=== PATIENT | male | born 1955 | race Caucasian/White ===

== ENCOUNTER 2018-08-18 23:11 | Observation (INO) | payer OTHER ==
[~2018-08-18] VITALS: Ht 179.1 cm; Wt 135.3 kg
[~2018-08-18 23:11] MED LIST: ASPI-1005 PO; ATOR40TA69 PO; FLUO20CA30 PO; ISOS30TA6 PO; LOSA50TA64 PO; METO-391 PO; NITR0.4T50 SL
[2018-08-18 23:32] LABS: BASOPHILS % (AUTO) 0.7 % (0.0-5.0); EOSINOPHILS % (AUTO) 6.2 % (0.0-8.0); HEMATOCRIT 39.3 % (42-54); LYMPHOCYTES % (AUTO) 26.3 % (21.0-51.0); MEAN CORPUSCULAR HEMOGLOBIN 34.7 pg (27.0-33.0); MEAN CORPUSCULAR HGB CONC 34.5 g/dL (32.0-36.0); MEAN CORPUSCULAR VOLUME 100.6 fL (79-99); MONOCYTES % (AUTO) 14.7 % (3.0-13.0); NEUTROPHILS % (AUTO) 52.1 % (40.0-77.0); NUCLEATED RED BLOOD CELLS 0.1 % (0.0-0.19); PLATELET COUNT (AUTO) 118 K/uL (130-400); RED BLOOD CELL COUNT(AUTO) 3.91 MIL/uL (4.50-6.20); RED CELL DISTRIBUTION WIDTH 15.6 % (11.0-15.5); WHITE BLOOD COUNT (AUTO) 7.2 K/uL (4.8-10.8)
[2018-08-18] MEDS ORDERED: ASPIRIN 325 MG TABLET ONE (23:44)
[2018-08-18 23:45] LABS: CREATININE 0.9 mg/dL (0.5-1.5); POTASSIUM 3.5 mmol/L (3.5-5.1)
[2018-08-18 23:50] LABS: ALBUMIN 2.3 g/dL (3.5-5.0)
[2018-08-18 23:51] LABS: B-TYPE NATRIURETIC PEPTIDE 28 pg/mL (0-100)
[2018-08-19] VITALS (7 sets, daily range): BP systolic 105–140; BP diastolic 62–75
[2018-08-19] MEDS ORDERED: ONDANSETRON HCL 4 MG/2 ML VIAL IV PRN (01:15)
[2018-08-19] MEDS ORDERED: POTASSIUM CHLORIDE 20 MEQ ERTAB PO PRN (01:15)
[2018-08-19] MEDS ORDERED: POTASSIUM CHLORIDE 10% ELIXIR 20 MEQ/15 ML UDCUP PO PRN (01:15)
[2018-08-19] MEDS ORDERED: NITROGLYCERIN 0.4 MG SL TAB SL PRN (01:15)
[2018-08-19] MEDS ORDERED: MAGNESIUM 2GM PREMIX 50ML 50 ML IV PRN (01:15)
[2018-08-19] MEDS ORDERED: LIDOCAINE HCL-MPF 1% 2ML VIAL IVP PRN (01:15)
[2018-08-19] MEDS ORDERED: ACETAMINOPHEN 325 MG TAB PO PRN ×2 (01:15)
[2018-08-19] MEDS ORDERED: POTASSIUM CHLORIDE 20MEQ/100ML 100 ML IV PRN (01:15)
[2018-08-19] MEDS ORDERED: FUROSEMIDE 10 MG/ML 4ML VIAL ONE (01:32)
[2018-08-19] MEDS ORDERED: NITROGLYCERIN 1GM/1 INCH PACKET TD ONE (01:32)
[2018-08-19] MEDS ORDERED: DIPHENHYDRAMINE HCL 25 MG CAPSULE PO PRN (01:45)
[2018-08-19] MEDS ORDERED: FUROSEMIDE 10 MG/ML 4ML VIAL IV SCH (01:45)
[2018-08-19 02:03] LABS: APPEARANCE,URINE CLEAR (CLEAR); BILIRUBIN,URINE MODERATE (NEGATIVE); GLUCOSE, URINE (UA) NEGATIVE (NEGATIVE); KETONES,URINE 15 mg/dL (NEGATIVE); LEUKOCYTE ESTERASE ,URINE TRACE (NEGATIVE); NITRATE,URINE POSITIVE (NEGATIVE); OCCULT BLOOD,URINE NEGATIVE (NEGATIVE); PROTEIN,URINE TRACE mg/dL (NEGATIVE)
[2018-08-19 02:05] LABS: COLOR,URINE AMBER (YELLOW)
[2018-08-19 02:10] LABS: RBC,URINE None Seen /HPF (0-1)
[2018-08-19 02:11] LABS: AMORPHOUS SEDIMENT,UR Moderate /LPF (None Seen); BACTERIA,URINE Few /HPF (None Seen); MUCUS,URINE Moderate LPF (None Seen); SQUAMOUS EPITHELIAL CELL,UR Moderate /HPF (0-2)
[2018-08-19 02:16] LABS: AMPHET/METH SCREEN,URINE NEGATIVE (NEGATIVE); BARBITURATE SCREEN, URINE NEGATIVE (NEGATIVE); BENZODIAZEPINES SCREEN,URINE NEGATIVE (NEGATIVE); CANNABINOID SCREEN,URINE NEGATIVE (NEGATIVE); COCAINE SCREEN,URINE POSITIVE (NEGATIVE); OPIATE SCREEN,URINE NEGATIVE (NEGATIVE); PHENCYCLIDINE SCREEN,URINE NEGATIVE (NEGATIVE)
[2018-08-19] MEDS ORDERED: LORAZEPAM 2 MG/ML 1 ML VIAL IVP PRN ×2 (03:15)
[2018-08-19] MEDS ORDERED: PROMETHAZINE HCL 25 MG TABLET PO PRN (03:15)
[2018-08-19] MEDS ORDERED: CHLORDIAZEPOXIDE HCL 25 MG CAP PO PRN ×2 (03:15)
[2018-08-19] MEDS ORDERED: PHARMACY COMMUNICATION MISC PRN (03:15)
[2018-08-19] MEDS: FUROSEMIDE 10 MG/ML 4ML VIAL IV SCH ×2 (05:19→18:04)
[2018-08-19] MEDS: IPRATROPIUM/ALBUTEROL SULFATE 3 ML SOLUTION IH PRN ×2 (06:08→18:19)
[2018-08-19 08:06] LABS: BASOPHILS % (AUTO) 0.9 % (0.0-5.0); EOSINOPHILS % (AUTO) 7.4 % (0.0-8.0); HEMATOCRIT 38.6 % (42-54); LYMPHOCYTES % (AUTO) 31.7 % (21.0-51.0); MEAN CORPUSCULAR HEMOGLOBIN 34.5 pg (27.0-33.0); MEAN CORPUSCULAR HGB CONC 33.9 g/dL (32.0-36.0); MEAN CORPUSCULAR VOLUME 101.6 fL (79-99); MONOCYTES % (AUTO) 15.1 % (3.0-13.0); NEUTROPHILS % (AUTO) 44.9 % (40.0-77.0); PLATELET COUNT (AUTO) 114 K/uL (130-400); RED CELL DISTRIBUTION WIDTH 15.8 % (11.0-15.5); WHITE BLOOD COUNT (AUTO) 6.2 K/uL (4.8-10.8)
[2018-08-19 08:23] LABS: INR 1.34 (0.85-1.15); PARTIAL THROMBOPLASTIN TIME 35.2 SEC (26.3-35.5)
[2018-08-19 08:35] LABS: CREATINE KINASE, TOTAL 200 U/L (21-232); MYOGLOBIN 99 ng/mL (10-92); PHOSPHORUS 3.4 mg/dL (2.5-4.9); TROPONIN I < 0.04 ng/mL (0.00-0.06)
[2018-08-19] MEDS ORDERED: ASPIRIN 325 MG TABLET PO SCH (09:00)
[2018-08-19] MEDS ORDERED: METOPROLOL TARTRATE 25 MG TAB PO SCH (09:00)
[2018-08-19] MEDS: FOLIC ACID 1 MG TABLET PO SCH (09:01)
[2018-08-19] MEDS: MULTIVITAMIN TABLET PO SCH (09:01)
[2018-08-19] MEDS: ENOXAPARIN SODIUM 40 MG/0.4 ML SYRINGE SQ SCH (09:02)
[2018-08-19] MEDS: THIAMINE HCL 100 MG/ML 2ML VIAL IM SCH (09:02)
[2018-08-19] MEDS: FAMOTIDINE 20MG TAB 20 MG TAB PO SCH ×2 (09:05→21:19)
[2018-08-19 09:40] LABS: ALBUMIN 2.1 g/dL (3.5-5.0); BILIRUBIN,TOTAL 4.8 mg/dL (0.2-1.0); CREATININE 0.8 mg/dL (0.5-1.5); MAGNESIUM 2.4 mg/dL (1.80-2.40); POTASSIUM 3.7 mmol/L (3.5-5.1); TOTAL PROTEIN, SERUM 6.6 g/dL (6.0-8.3)
[2018-08-19] MEDS ORDERED: ISOS30TA6 PO (10:09)
[2018-08-19] MEDS ORDERED: FURO20TA4 PO (10:09)
[2018-08-19] MEDS ORDERED: ASPI-1181 PO (10:09)
[2018-08-19] MEDS ORDERED: ATOR20TA65 PO (10:09)
[2018-08-19] MEDS ORDERED: METO-391 PO (10:09)
[2018-08-19] MEDS ORDERED: FLUO-126 PO (10:09)
--- NOTE | 2018-08-19 10:50 | NUR ---
DR. RESENDIZ HERE , CONSULTATION . ORDER .REVIEW PT . HX. AND SPOKE OF PT OF PLAN OF CARE. AT PRESENT DENIES ANY CHEST PAIN. TELE MONITOR ON .AND CALL LIGHT IN REACH..
[2018-08-19 16:13] LABS: CREATINE KINASE, TOTAL 172 U/L (21-232); MYOGLOBIN 79 ng/mL (10-92); TROPONIN I < 0.04 ng/mL (0.00-0.06)
--- NOTE | 2018-08-19 16:35 | NUR ---
INITIAL: Met with pt and spouse this afternoon to discuss dcp. Pt states that he lives w spouse. Prior to admission was requiring FURNITURE DUSTER for ambulation and assist w ADLs. Pt does not own any DME or receive services. Per pt he feels safe and comfortable to [place] at [place]. CM to continue to follow and wait for Md recommendations. Addendum: 08/19/18 at 1637 by MANUEL STODDARD Amended: Links added.
[2018-08-19] MEDS: ATORVASTATIN CALCIUM 20 MG TABLET PO SCH (21:19)
[2018-08-20 04:07] VITALS: BP 126/72
[2018-08-20] MEDS: FUROSEMIDE 10 MG/ML 4ML VIAL IV SCH ×2 (05:46→18:49)
[2018-08-20 06:08] LABS: BASOPHILS % (AUTO) 0.4 % (0.0-5.0); EOSINOPHILS % (AUTO) 5.5 % (0.0-8.0); HEMATOCRIT 37.7 % (42-54); LYMPHOCYTES % (AUTO) 24.2 % (21.0-51.0); MEAN CORPUSCULAR HEMOGLOBIN 35.9 pg (27.0-33.0); MEAN CORPUSCULAR HGB CONC 35.4 g/dL (32.0-36.0); MEAN CORPUSCULAR VOLUME 101.3 fL (79-99); MONOCYTES % (AUTO) 21.1 % (3.0-13.0); NEUTROPHILS % (AUTO) 48.8 % (40.0-77.0); PLATELET COUNT (AUTO) 105 K/uL (130-400); RED BLOOD CELL COUNT(AUTO) 3.72 MIL/uL (4.50-6.20); RED CELL DISTRIBUTION WIDTH 15.9 % (11.0-15.5); WHITE BLOOD COUNT (AUTO) 4.9 K/uL (4.8-10.8)
[2018-08-20 06:19] LABS: BILIRUBIN,TOTAL 4.8 mg/dL (0.2-1.0); CREATININE 0.8 mg/dL (0.5-1.5); MAGNESIUM 1.8 mg/dL (1.80-2.40); PHOSPHORUS 3.5 mg/dL (2.5-4.9); POTASSIUM 3.8 mmol/L (3.5-5.1); TOTAL PROTEIN, SERUM 6.3 g/dL (6.0-8.3)
[2018-08-20] MEDS: IPRATROPIUM/ALBUTEROL SULFATE 3 ML SOLUTION IH PRN ×2 (06:49→18:41)
[2018-08-20 07:30] VITALS: BP 129/89
--- NOTE | 2018-08-20 08:00 | NUR ---
PT AAO X 3 REVIEW PLAN OF CARE. PT IS NPO FOR PENDING CRISTINA SCAN FOR TODAY, DENIES ANY CHEST PAIN, , CALL LIGHT IN REACH..
[2018-08-20] MEDS ORDERED: NON-FORMULARY MEDICATION 1 EACH (Metoprolol Succinate 50 MG) PO SCH (09:00)
[2018-08-20 11:00] VITALS: BP 136/76
[2018-08-20] MEDS ORDERED: REGADENOSON 0.4 MG/5 ML PF SYG IVP SCH (11:00)
[2018-08-20] MEDS: FLUOXETINE HCL 20 MG CAPSULE PO SCH (14:48)
[2018-08-20] MEDS: FOLIC ACID 1 MG TABLET PO SCH (14:49)
[2018-08-20] MEDS: THIAMINE HCL 100 MG/ML 2ML VIAL IM SCH (14:49)
[2018-08-20] MEDS: METOPROLOL TARTRATE 25 MG TAB PO SCH ×2 (14:49→20:48)
[2018-08-20] MEDS: MULTIVITAMIN TABLET PO SCH (14:49)
[2018-08-20] MEDS: ISOSORBIDE MONO 30MG TAB SR PO SCH (14:50)
[2018-08-20] MEDS: ASPIRIN 81 MG EC TAB PO SCH (14:55)
[2018-08-20] MEDS: ENOXAPARIN SODIUM 40 MG/0.4 ML SYRINGE SQ SCH (14:55)
[2018-08-20] MEDS: FAMOTIDINE 20MG TAB 20 MG TAB PO SCH ×2 (14:55→20:48)
[2018-08-20 16:00] VITALS: BP 139/71
--- NOTE | 2018-08-20 17:00 | NUR ---
CRISTINA SCAN . COMPLETED . WITH RESULTS NOTED.
[2018-08-20 20:00] VITALS: BP 126/73
[2018-08-20] MEDS: ATORVASTATIN CALCIUM 20 MG TABLET PO SCH (20:48)
[2018-08-21] VITALS: BP 111/55
[2018-08-21 04:00] VITALS: BP 95/61
[2018-08-21 05:14] LABS: CREATININE 0.8 mg/dL (0.5-1.5); POTASSIUM 3.6 mmol/L (3.5-5.1)
[2018-08-21] MEDS: FUROSEMIDE 10 MG/ML 4ML VIAL IV SCH (05:44)
[2018-08-21] MEDS: IPRATROPIUM/ALBUTEROL SULFATE 3 ML SOLUTION IH PRN (06:18)
[2018-08-21 07:50] VITALS: BP 104/58
--- NOTE | 2018-08-21 08:00 | NUR ---
PT AAO X 3 RE VIEW PLAN OF CARE FOR TODAY PENDING DR RESENDIZ . RECOMMANDATIONS . FOR POSSIBLE . DISCHARGE CARE . CALL LIGHT IN REACH...
[2018-08-21] MEDS ORDERED: FOLI1TAB15 PO (08:46)
[2018-08-21] MEDS ORDERED: MVIT PO (08:46)
[2018-08-21] MEDS ORDERED: FURO40TA7 PO (08:46)
[2018-08-21] MEDS ORDERED: METO25 PO (08:46)
[2018-08-21] MEDS ORDERED: CEFTRIAXONE SODIUM 2 GM VIAL IVP SCH (09:00)
[2018-08-21] MEDS ORDERED: CEFD300C3 PO (09:01)
[2018-08-21] MEDS: ENOXAPARIN SODIUM 40 MG/0.4 ML SYRINGE SQ SCH (09:16)
[2018-08-21] MEDS: ASPIRIN 81 MG EC TAB PO SCH (09:16)
[2018-08-21] MEDS: FAMOTIDINE 20MG TAB 20 MG TAB PO SCH (09:16)
[2018-08-21] MEDS: MULTIVITAMIN TABLET PO SCH (09:17)
[2018-08-21] MEDS: THIAMINE HCL 100 MG/ML 2ML VIAL IM SCH (09:17)
[2018-08-21] MEDS: ISOSORBIDE MONO 30MG TAB SR PO SCH (09:17)
[2018-08-21] MEDS: FLUOXETINE HCL 20 MG CAPSULE PO SCH (09:17)
[2018-08-21] MEDS: FOLIC ACID 1 MG TABLET PO SCH (09:17)
[2018-08-21] MEDS: METOPROLOL TARTRATE 25 MG TAB PO SCH (09:18)
[2018-08-21 11:37] VITALS: BP 116/65
--- NOTE | 2018-08-21 15:21 | NUR ---
DIS CHARGE SUMMARY REVIEW WITH PT. REGARDING DISCHARGE MEDICATIONS ORDERS AND CHANGES . PT WAS ABLE TO FOCUS WITH INSTRUCTIONS . PT ALSO TO FOLLOW WITH DR. RESENDIZ AND HIS PRIVATE DRJosé FOR CONT FOLLOW CARE..// SL TO HIS RAC DC , WITH NO REDNESS TO SITE. OR HEMATOMA. . FAMILY , AT THE BEDSIDE AND REVIEW . AGAIN MEDICATIONS CHANGES AND NEW PRESCRIPTIONS . OFFER NO C/O OF CHEST PAIN. OR SOB. . .
== END 2018-08-21 15:21 | disposition home or self-care (01) ==
LOC: EDH 23:11 → INTOOBSV 08-19 01:20 → EDHIP 08-19 01:20 → 3BH 08-19 02:33
PROVIDERS: ADMIT Hospitalist; ATTEND Hospitalist
DX: R07.89 Other chest pain (principal); E83.42 Hypomagnesemia; I11.0 Hypertensive heart disease with heart failure; I50.9 Heart failure, unspecified; I25.10 Atherosclerotic heart disease of native coronary artery without angina pectoris; I81 Portal vein thrombosis; K74.60 Unspecified cirrhosis of liver; E87.6 Hypokalemia; F10.229 Alcohol dependence with intoxication, unspecified; F17.210 Nicotine dependence, cigarettes, uncomplicated; N39.0 Urinary tract infection, site not specified; R18.8 Other ascites; R79.1 Abnormal coagulation profile; Z82.49 Family history of ischemic heart disease and other diseases of the circulatory system; Z83.3 Family history of diabetes mellitus; Z90.49 Acquired absence of other specified parts of digestive tract; Z95.5 Presence of coronary angioplasty implant and graft; Z79.899 Other long term (current) drug therapy
CPT/HCPCS: 36415 ×4; 71045; 76700; 78452; 80048; 80053 ×3; 80061; 80305; 81001; 82550 ×3; 83735 ×3; 83874 ×2; 83880; 84100 ×3; 84484 ×3; 85025 ×3; 85610; 85730; 87088; 93005 ×3; 93017; 93306; 93970; 94640 ×5; 94664; 96372 ×3; 96374; 96375; 96376 ×3; 99284; A9500 ×2; G0378 ×56; G0480; J0696; J1650 ×3; J1940 ×6; J2785; J3411 ×3; Q0163

== ENCOUNTER 2018-11-08 06:14 | Day surgery (SDC) | payer OTHER ==
[~2018-11-08] VITALS: Ht 177.8 cm; Wt 129.7 kg
[~2018-11-08 06:14] MED LIST changes: -ASPI-1005 PO; +ASPI-1181 PO; +ATOR20TA65 PO; -ATOR40TA69 PO; +FLUO-126 PO; -FLUO20CA30 PO; +FOLI1TAB15 PO; +FURO40TA7 PO; -LOSA50TA64 PO; -METO-391 PO; +METO25 PO; -NITR0.4T50 SL; +SODIUM CHLORIDE 0.9% 1000ML 1,000 ML IV ONE; +SPIR50TA5 PO
[2018-11-08 07:16] VITALS: BP 108/64
[2018-11-08] MEDS ORDERED: PROPOFOL 10 MG/ML 20ML VIAL IV ONE (08:49)
[2018-11-08 09:00] VITALS: BP 100/56
[2018-11-08 09:15] VITALS: BP 116/68
== END 2018-11-08 09:37 | disposition home or self-care (01) ==
LOC: DAH 06:14 → ENDO 06:14
PROVIDERS: ATTEND Internal Medicine Gastroenterology
DX: K29.50 Unspecified chronic gastritis without bleeding (principal); I85.00 Esophageal varices without bleeding; K31.89 Other diseases of stomach and duodenum; I10 Essential (primary) hypertension; F41.9 Anxiety disorder, unspecified; K74.60 Unspecified cirrhosis of liver; F32.9 Major depressive disorder, single episode, unspecified; E78.2 Mixed hyperlipidemia; I25.10 Atherosclerotic heart disease of native coronary artery without angina pectoris; F17.210 Nicotine dependence, cigarettes, uncomplicated; Z86.010 Personal history of colon polyps; Z90.49 Acquired absence of other specified parts of digestive tract; Z98.890 Other specified postprocedural states; Z72.89 Other problems related to lifestyle; Z95.818 Presence of other cardiac implants and grafts; Z79.899 Other long term (current) drug therapy; Z79.82 Long term (current) use of aspirin; Z82.3 Family history of stroke; Z83.3 Family history of diabetes mellitus; Z82.49 Family history of ischemic heart disease and other diseases of the circulatory system
CPT/HCPCS: 43239; 88305; J2704; J7030

== ENCOUNTER → 2019-03-13 | Outpatient (CLI) | payer OTHER ==
[~2019-03-13] MED LIST changes: -FLUO-126 PO; +FLUO20CA34 PO; -SODIUM CHLORIDE 0.9% 1000ML 1,000 ML IV ONE
[2019-03-13 08:15] LABS: BASOPHILS % (AUTO) 0.6 % (0.0-5.0); EOSINOPHILS % (AUTO) 9.2 % (0.0-8.0); HEMATOCRIT 35.6 % (42-54); LYMPHOCYTES % (AUTO) 26.8 % (21.0-51.0); MEAN CORPUSCULAR HEMOGLOBIN 33.6 pg (27.0-33.0); MEAN CORPUSCULAR HGB CONC 34.6 g/dL (32.0-36.0); MEAN CORPUSCULAR VOLUME 97.3 fL (79-99); MONOCYTES % (AUTO) 17.3 % (3.0-13.0); NEUTROPHILS % (AUTO) 45.6 % (40.0-77.0); PLATELET COUNT (AUTO) 117 K/uL (130-400); RED BLOOD CELL COUNT(AUTO) 3.66 MIL/uL (4.50-6.20); RED CELL DISTRIBUTION WIDTH 16.8 % (11.0-15.5); WHITE BLOOD COUNT (AUTO) 6.5 K/uL (4.8-10.8)
[2019-03-13 08:30] LABS: INR 1.38 (0.85-1.15); PROTHROMBIN TIME 14.3 SEC (9.6-11.6)
[2019-03-13 08:35] LABS: ALBUMIN 1.9 g/dL (3.5-5.0); BILIRUBIN,TOTAL 3.6 mg/dL (0.2-1.0); CREATININE 1.2 mg/dL (0.5-1.5); POTASSIUM 4.9 mmol/L (3.5-5.1); TOTAL PROTEIN, SERUM 7.1 g/dL (6.0-8.3)
--- NOTE | 2019-03-13 09:50 | NUR ---
U/S GD PARACENTESIS PROCEDURE PERFORMED BY . PUNCTURE SITE RIGHT LOWER QUADRANT OF ABDOMEN AND PATIENT TOLERATED PROCEDURE WELL. TOTAL REMOVED 9.6 LITERS OF YELLOW FLUID. END OF PROCEDURE AT 0925. CATHETER REMOVED AND DRESSING APPLIED. NO BLEEDING NOTED. ALBUMIN 25% 50 GRAMS GIVEN DURING PROCEDURE [place] [facility] [place]. DISCHARGE INSTRUCTIONS GIVEN TO PATIENT. PATIENT VERBALIZED UNDERSTANDING. PT DISCHARGED AMBULATORY, STABLE, AAO X3 WITH NO C/O PAIN. SPECIMEN SENT TO LAB.
[2019-03-13 11:56] LABS: ALBUMIN,BODY FLUID < 0.6 g/dL
[2019-03-13 12:28] LABS: APPEARANCE BODY FLUID CLEAR (CLEAR); BODY FLUID WBC 94 /cu. mm.; COLOR,BODY FLUID YELLOW (LT YELLOW); SPECIMENTYPE,BODY FLUID ASCITES
[2019-03-13] MEDS: ALBUMIN (HUMAN) 25% 200 ML IV PRN ×2 (12:28→12:29)
[2019-03-13 12:29] LABS: BODY FLUID RBC 284 /cu. mm.
[2019-03-13 12:30] LABS: TOTAL VOLUME,BODY FLUID 9600 mL
[2019-03-13 12:46] LABS: BF EOSINOPHIL 1 %; BF LYMPHOCYTE 45 %; BF MESOTHELIAL 27 %; BF MONOCYTE 10 %
== END ==
LOC: RAH 07:24
PROVIDERS: ATTEND Internal Medicine Gastroenterology
DX: K74.60 Unspecified cirrhosis of liver (principal); K29.30 Chronic superficial gastritis without bleeding; I85.00 Esophageal varices without bleeding; R19.7 Diarrhea, unspecified; E78.2 Mixed hyperlipidemia; I10 Essential (primary) hypertension; F41.9 Anxiety disorder, unspecified; F32.9 Major depressive disorder, single episode, unspecified; Z79.82 Long term (current) use of aspirin; Z79.899 Other long term (current) drug therapy; Z86.010 Personal history of colon polyps; Z90.49 Acquired absence of other specified parts of digestive tract; Z98.890 Other specified postprocedural states; Z95.5 Presence of coronary angioplasty implant and graft
CPT/HCPCS: 36415; 49083; 80053; 82042; 84157; 85025; 85610; 87071; 87205; 89051; 96365; A4215

== ENCOUNTER 2019-05-01 16:45 | Inpatient (IN) | payer OTHER ==
[~2019-05-01] VITALS: Ht 180.3 cm; Wt 123.4 kg
[~2019-05-01 16:45] MED LIST changes: -FLUO20CA34 PO; +FLUO20CA35 PO
[2019-05-01] MEDS ORDERED: SODIUM CHLORIDE 0.9% 1000ML 1,000 ML IV ONE (17:13)
[2019-05-01 17:23] LABS: BASOPHILS % (AUTO) 0.1 % (0.0-5.0); EOSINOPHILS % (AUTO) 1.9 % (0.0-8.0); LYMPHOCYTES % (AUTO) 10.8 % (21.0-51.0); MEAN CORPUSCULAR HGB CONC 35.7 g/dL (32.0-36.0); MEAN CORPUSCULAR VOLUME 92.6 fL (79-99); NEUTROPHILS % (AUTO) 75.9 % (40.0-77.0); PLATELET COUNT (AUTO) 126 K/uL (130-400); RED BLOOD CELL COUNT(AUTO) 3.24 MIL/uL (4.50-6.20); RED CELL DISTRIBUTION WIDTH 17.6 % (11.0-15.5); WHITE BLOOD COUNT (AUTO) 11.8 K/uL (4.8-10.8)
[2019-05-01 17:36] LABS: INR 1.43 (0.85-1.15); PARTIAL THROMBOPLASTIN TIME 38.1 SEC (26.3-35.5); PROTHROMBIN TIME 14.8 SEC (9.6-11.6)
[2019-05-01 17:38] LABS: CARBON DIOXIDE 18 mmol/L (21-32); CHLORIDE 100 mmol/L (101-111); CREATININE 4.6 mg/dL (0.5-1.5); GLOMERULAR FILTR. RATE CALC 14 mL/min (>60); GLUCOSE,RANDOM 135 mg/dL (70-105); POTASSIUM 5.6 mmol/L (3.5-5.1); SODIUM SERUM 129 mmol/L (136-145); UREA NITROGEN, BLOOD 53 mg/dL (7-18)
[2019-05-01 17:50] LABS: ALANINE AMINOTRANSFERASE 59 U/L (12-78); ALBUMIN 1.6 g/dL (3.5-5.0); ASPARTATE AMINOTRANSFERASE 105 U/L (10-37); BILIRUBIN,TOTAL 2.5 mg/dL (0.2-1.0); CREATINE KINASE, TOTAL 263 U/L (21-232); MYOGLOBIN 786 ng/mL (10-92); TOTAL PROTEIN, SERUM 6.4 g/dL (6.0-8.3); TROPONIN I < 0.04 ng/mL (0.00-0.06)
[2019-05-01 18:06] LABS: APPEARANCE,URINE Cloudy (CLEAR); BILIRUBIN,URINE Moderate (NEGATIVE); COLOR,URINE Dark Yellow (YELLOW); GLUCOSE, URINE (UA) Negative (NEGATIVE); KETONES,URINE Trace mg/dL (NEGATIVE); LEUKOCYTE ESTERASE ,URINE Small (NEGATIVE); NITRATE,URINE Positive (NEGATIVE); OCCULT BLOOD,URINE Negative (NEGATIVE); PROTEIN,URINE POS 1+ mg/dL (NEGATIVE)
[2019-05-01 18:27] LABS: AMORPHOUS SEDIMENT,UR Few /LPF (None Seen); BACTERIA,URINE Moderate /HPF (None Seen); MUCUS,URINE Many LPF (None Seen); RBC,URINE 0-1 /HPF (0-1); SQUAMOUS EPITHELIAL CELL,UR Moderate /HPF (0-2)
[2019-05-01] MEDS ORDERED: ZOSYN 3.375GM+NS 50ML 50 ML IV ONE (18:37)
[2019-05-01 18:55] LABS: AMPHET/METH SCREEN,URINE NEGATIVE (NEGATIVE); BARBITURATE SCREEN, URINE NEGATIVE (NEGATIVE); BENZODIAZEPINES SCREEN,URINE NEGATIVE (NEGATIVE); CANNABINOID SCREEN,URINE NEGATIVE (NEGATIVE); COCAINE SCREEN,URINE POSITIVE (NEGATIVE); OPIATE SCREEN,URINE NEGATIVE (NEGATIVE); PHENCYCLIDINE SCREEN,URINE NEGATIVE (NEGATIVE)
[2019-05-01 18:58] LABS: ABG BASE EXCESS -9.9 mmol/L (-2.0-3.0); ABG OXYGEN SATURATION 95.3 % (95.0-99.0); ABG PCO2 26 mmHg (35-48)
[2019-05-01] MEDS ORDERED: SODIUM BICARB 50MEQ 50ML VIAL ONE (19:28)
[2019-05-01] MEDS ORDERED: CALCIUM GLUCONATE 1 GM/10 ML VIAL IV ONE (19:28)
[2019-05-01] MEDS ORDERED: INSULIN HUMULIN R 100 UNIT/ML 3ML ONE (19:29)
[2019-05-01] MEDS ORDERED: DEXTROSE 50%-WATER 50 ML DISP.SYRIN IV ONE (19:29)
[2019-05-01] MEDS ORDERED: SODIUM CHLORIDE 0.9% 500ML 500 ML IV ONE ×2 (19:30→21:57)
[2019-05-01] MEDS ORDERED: NOREPINEPHRINE BITARTRATE 1 MG/1 ML ML IV ONE (20:57)
[2019-05-01] MEDS ORDERED: VANCOMYCIN 1GM+NS 250ML 250 ML IV ONE (21:57)
[2019-05-01] MEDS ORDERED: ALBUMIN (HUMAN) 25% 100 ML IV ONE (21:58)
[2019-05-01] MEDS ORDERED: ZOSYN 3.375GM+NS 50ML 50 ML IV SCH (22:15)
[2019-05-01] MEDS ORDERED: CEFTRIAXONE SODIUM 1 GM IVP SCH (22:15)
[2019-05-01] MEDS ORDERED: ALBUMIN (HUMAN) 25% 50 ML IV SCH (22:15)
[2019-05-01 22:33] LABS: BASOPHILS % (AUTO) 0.3 % (0.0-5.0); HEMATOCRIT 28.3 % (42-54); LYMPHOCYTES % (AUTO) 13.8 % (21.0-51.0); MEAN CORPUSCULAR VOLUME 91.6 fL (79-99); MONOCYTES % (AUTO) 15.2 % (3.0-13.0); NEUTROPHILS % (AUTO) 68.5 % (40.0-77.0); PLATELET COUNT (AUTO) 114 K/uL (130-400); RED BLOOD CELL COUNT(AUTO) 3.09 MIL/uL (4.50-6.20); RED CELL DISTRIBUTION WIDTH 17.7 % (11.0-15.5); WHITE BLOOD COUNT (AUTO) 11.2 K/uL (4.8-10.8)
[2019-05-01 22:43] LABS: CREATININE 4.5 mg/dL (0.5-1.5)
[2019-05-01 22:49] LABS: ALBUMIN 1.5 g/dL (3.5-5.0); BILIRUBIN,DIRECT 1.9 mg/dL (0.0-0.3); BILIRUBIN,TOTAL 2.3 mg/dL (0.2-1.0); TOTAL PROTEIN, SERUM 5.8 g/dL (6.0-8.3)
[2019-05-01 23:08] LABS: B-TYPE NATRIURETIC PEPTIDE 23 pg/mL (0-100)
[2019-05-01] MEDS ORDERED: PHARMACY COMMUNICATION MISC SCH (23:30)
[2019-05-02] VITALS (8 sets, daily range): BP systolic 81–102; BP diastolic 44–58
[2019-05-02] MEDS ORDERED: ZOSYN 3.375GM+NS 50ML 50 ML IV ONE (05:46)
[2019-05-02] MEDS ORDERED: CEFTRIAXONE SODIUM 1 GM ONE (05:47)
[2019-05-02] MEDS ORDERED: NOREPINEPHRINE BITARTRATE 1 MG/1 ML ML IV ONE ×3 (07:30→15:00)
[2019-05-02] MEDS ORDERED: SODIUM CHLORIDE 0.9% 100 ML IV ONE ×4 (07:31→15:00)
[2019-05-02] MEDS ORDERED: IBUPROFEN 200 MG TAB ONE (08:04)
[2019-05-02] MEDS ORDERED: IBUPROFEN 400 MG TABLET ONE (08:04)
[2019-05-02] MEDS: FAMOTIDINE/PF 20 MG/2 ML VIAL IV SCH ×2 (09:00→20:42)
[2019-05-02] MEDS: LACTATED RINGERS 1000ML IV SCH (09:15)
[2019-05-02] MEDS: MEROPENEM 1 GM VIAL IVP SCH ×2 (09:15→18:25)
[2019-05-02] MEDS ORDERED: VASOPRESSIN 20 UNITS in SODIUM CHLORIDE 0.9% 100 ML IV SCH (09:15)
[2019-05-02] MEDS ORDERED: FENTANYL CITRATE PF 50 MCG/1 ML 2ML VIAL ONE (09:25)
[2019-05-02] MEDS ORDERED: MIDAZOLAM HCL 5 MG/ML 2ML VIAL IV ONE (09:26)
[2019-05-02] MEDS ORDERED: MIDODRINE HCL 5 MG TABLET PO SCH (10:00)
[2019-05-02] MEDS ORDERED: MEROPENEM 1 GM VIAL ONE (11:23)
[2019-05-02] MEDS ORDERED: ALBUMIN (HUMAN) 25% 100 ML IV ONE (11:24)
[2019-05-02] MEDS ORDERED: MIDODRINE HCL 5 MG TABLET ONE (11:24)
[2019-05-02] MEDS ORDERED: METHYLPREDNISOLONE SOD SUCC 125MG/2ML VIAL ONE (11:24)
[2019-05-02] MEDS ORDERED: FAMOTIDINE/PF 20 MG/2 ML VIAL IV ONE (11:25)
[2019-05-02] MEDS ORDERED: LACTATED RINGERS 1000ML 1,000 ML IV ONE (11:25)
[2019-05-02] MEDS: HYDROCORTISONE SOD SUCCINATE 100 MG/2 ML VIAL IV SCH ×2 (12:00→18:25)
[2019-05-02 12:30] LABS: PROTEIN,URINE RANDOM 100.2 mg/dL (0-11.9); SODIUM,URINE RANDOM < 15 mmol/l (40-220)
--- NOTE | 2019-05-02 12:35 | NUR ---
INITIAL Patient lives with spouse, Princess Timmons, [phone]. No home services. DME: [employer]. Patient needs help especially in the last 2 months as per . Patient is not driving at this time. PCP is Dr. Shreyas Campos. Pharmacy is [facility] located in [place]. DCP is home. Addendum: 05/02/19 at 1237 by MASSIEL HANNAH SS Amended: Links added.
[2019-05-02 13:12] LABS: CREATININE,URINE RANDOM 483 mg/dL (30-135)
[2019-05-02] MEDS: MIDODRINE HCL 5 MG TABLET PO SCH ×2 (14:00→20:42)
--- NOTE | 2019-05-02 18:00 | NUR ---
Pt arrived from ER patient arrived from ER with noted wrong concentration of medication of levophed. issue was immediately addressed medication was switched to correct concentration as per protocol through peripheral IV infusion
[2019-05-02 18:21] LABS: ALBUMIN,BODY FLUID < 0.6 g/dL
[2019-05-02] MEDS ORDERED: OMEP40CA13 PO (18:34)
[2019-05-02] MEDS ORDERED: LOSA50TA64 PO (18:34)
[2019-05-02] MEDS ORDERED: LACT10SO62 PO (18:34)
[2019-05-02] MEDS ORDERED: METO25TA6 PO ×2 (18:34)
[2019-05-02] MEDS ORDERED: NITR0.4T50 SL (18:34)
[2019-05-02] MEDS ORDERED: SPIR100T5 PO (18:34)
[2019-05-02] MEDS: NOREPINEPHRINE 4MG/NS 250ML 250 ML IV SCH (18:39)
[2019-05-02 19:00] LABS: SPECIMENTYPE,BODY FLUID PARACENTESIS
[2019-05-02 19:01] LABS: APPEARANCE BODY FLUID CLOUDY (CLEAR); COLOR,BODY FLUID YELLOW (LT YELLOW); TOTAL VOLUME,BODY FLUID 6 mL
[2019-05-02 19:02] LABS: BODY FLUID RBC 1425 /cu. mm.; BODY FLUID WBC 68 /cu. mm.
[2019-05-02 19:20] LABS: ALT, BODY FLUID 9 U/L
[2019-05-02 19:26] LABS: BF LYMPHOCYTE 31 %; BF MESOTHELIAL 10 %; BF MONOCYTE 16 %
[2019-05-02 20:30] LABS: BASOPHILS % (AUTO) 0.3 % (0.0-5.0); HEMATOCRIT 30.9 % (42-54); LYMPHOCYTES % (AUTO) 5.8 % (21.0-51.0); MEAN CORPUSCULAR HEMOGLOBIN 32.7 pg (27.0-33.0); MEAN CORPUSCULAR HGB CONC 35.6 g/dL (32.0-36.0); MONOCYTES % (AUTO) 1.2 % (3.0-13.0); NEUTROPHILS % (AUTO) 92.4 % (40.0-77.0); PLATELET COUNT (AUTO) 161 K/uL (130-400); RED BLOOD CELL COUNT(AUTO) 3.36 MIL/uL (4.50-6.20); RED CELL DISTRIBUTION WIDTH 17.4 % (11.0-15.5); WHITE BLOOD COUNT (AUTO) 7.2 K/uL (4.8-10.8)
[2019-05-02] MEDS: ALBUMIN (HUMAN) 25% 100 ML IV SCH ×2 (20:41→22:00)
[2019-05-02 20:50] LABS: CREATININE 3.8 mg/dL (0.5-1.5); POTASSIUM 5.6 mmol/L (3.5-5.1)
[2019-05-02 20:55] LABS: BILIRUBIN,TOTAL 3.7 mg/dL (0.2-1.0); TOTAL PROTEIN, SERUM 6.4 g/dL (6.0-8.3)
--- NOTE | 2019-05-02 22:21 | NUR ---
PM LABS CBC , BMP RESULTS REPORTED TO DR NANCE INCLUDING NA 129, K 5.6, CO2 16, BUN 58, CR 3.8,LA 2.4 ELEVATED LFT .PATIENT ON LEVO MAINTAINING SBP >95. AWAKE AND ALERT. NEW ORDERS RECEIVED.
[2019-05-02] MEDS ORDERED: FUROSEMIDE 10 MG/ML 4ML VIAL ONE (22:42)
[2019-05-02] MEDS ORDERED: FUROSEMIDE 10 MG/ML 4ML VIAL IV ONE (22:45)
[2019-05-03] VITALS (33 sets, daily range): BP systolic 95–130; BP diastolic 40–70
[2019-05-03] MEDS: HYDROCORTISONE SOD SUCCINATE 100 MG/2 ML VIAL IV SCH ×2 (00:03→05:50)
[2019-05-03] MEDS: MEROPENEM 1 GM VIAL IVP SCH ×4 (01:43→21:09)
[2019-05-03] MEDS: NOREPINEPHRINE 4MG/NS 250ML 250 ML IV SCH (02:40)
--- NOTE | 2019-05-03 02:50 | NUR ---
POTASSIUM 5.[address] NANCE, INCREASED FROM 5.6 EARLIER. NO NEW ORDERS.
[2019-05-03 04:47] LABS: HEMATOCRIT 31.3 % (42-54); MEAN CORPUSCULAR HEMOGLOBIN 32.4 pg (27.0-33.0); MEAN CORPUSCULAR HGB CONC 35.8 g/dL (32.0-36.0); MEAN CORPUSCULAR VOLUME 90.5 fL (79-99); PLATELET COUNT (AUTO) 150 K/uL (130-400); RED BLOOD CELL COUNT(AUTO) 3.46 MIL/uL (4.50-6.20); RED CELL DISTRIBUTION WIDTH 17.1 % (11.0-15.5); WHITE BLOOD COUNT (AUTO) 9.2 K/uL (4.8-10.8)
[2019-05-03 04:59] LABS: CREATININE 3.4 mg/dL (0.5-1.5); PHOSPHORUS 6.3 mg/dL (2.5-4.9); POTASSIUM 5.2 mmol/L (3.5-5.1)
[2019-05-03 05:03] LABS: BAND NEUTROPHILS % (MANUAL) 4 % (0-2); LYMPHOCYTES % (MANUAL) 6 % (22-44); MAN.DIFF COMMENT-IMPRESSION MANUAL DIFFERENTIAL; METAMYELOCYTES % 1 % (0-0); MONOCYTES % (MANUAL) 1 % (2-9); REACTIVE LYMPHOCYTES 1 % (0-0); SEGMENTED NEUTROPHILS % 87 % (40-70)
[2019-05-03 05:06] LABS: PLATELET MORPHOLOGY COMMENT ADEQUATE
[2019-05-03] MEDS: ALBUMIN (HUMAN) 25% 100 ML IV SCH ×3 (05:50→21:09)
[2019-05-03] MEDS: FAMOTIDINE/PF 20 MG/2 ML VIAL IV SCH ×2 (09:01→21:09)
[2019-05-03] MEDS: MIDODRINE HCL 5 MG TABLET PO SCH ×3 (09:01→21:09)
[2019-05-03] MEDS: SODIUM BICARBONATE 650 MG TAB PO SCH ×2 (09:01→21:09)
[2019-05-03] MEDS: LACTATED RINGERS 1000ML IV SCH (09:15)
--- NOTE | 2019-05-03 15:00 | NUR ---
PT HAS BEEN OFF LEVOPHED SINCE 12NOON. VS STABLE. WAS ABLE TO GET OUT OF BED WITHOUT SHORTNESS OF BREATH, HYPOTENSION, OR ARRYTHMIA
[2019-05-04 03:23] VITALS: BP 106/63
[2019-05-04 05:12] LABS: HEMATOCRIT 26.2 % (42-54); MEAN CORPUSCULAR HEMOGLOBIN 32.4 pg (27.0-33.0); MEAN CORPUSCULAR HGB CONC 36.3 g/dL (32.0-36.0); MEAN CORPUSCULAR VOLUME 89.4 fL (79-99); MONOCYTES % (AUTO) 7.7 % (3.0-13.0); NEUTROPHILS % (AUTO) 85.8 % (40.0-77.0); PLATELET COUNT (AUTO) 108 K/uL (130-400); RED BLOOD CELL COUNT(AUTO) 2.93 MIL/uL (4.50-6.20); RED CELL DISTRIBUTION WIDTH 17.2 % (11.0-15.5); WHITE BLOOD COUNT (AUTO) 9.7 K/uL (4.8-10.8)
[2019-05-04 05:26] LABS: INR 1.53 (0.85-1.15); PARTIAL THROMBOPLASTIN TIME 42.5 SEC (26.3-35.5); PROTHROMBIN TIME 16.3 SEC (9.6-11.6)
[2019-05-04 05:52] LABS: ALBUMIN 2.5 g/dL (3.5-5.0); BILIRUBIN,TOTAL 2.1 mg/dL (0.2-1.0); CREATININE 2.4 mg/dL (0.5-1.5); THYROID STIMULATING HORMONE 1.42 uIU/mL (0.36-3.74)
[2019-05-04] MEDS: ALBUMIN (HUMAN) 25% 100 ML IV SCH ×2 (06:05→13:45)
[2019-05-04 07:00] VITALS: BP 128/67
[2019-05-04] MEDS: SODIUM BICARBONATE 650 MG TAB PO SCH ×2 (08:39→20:40)
[2019-05-04] MEDS: MIDODRINE HCL 5 MG TABLET PO SCH ×3 (08:39→20:40)
[2019-05-04] MEDS: MEROPENEM 1 GM VIAL IVP SCH ×2 (08:41→20:40)
[2019-05-04] MEDS ORDERED: FAMOTIDINE 20MG TAB 20 MG TAB PO SCH (09:00)
[2019-05-04 11:00] VITALS: BP 118/61
[2019-05-04 15:00] VITALS: BP 113/56
[2019-05-04 19:21] VITALS: BP 104/77
[2019-05-04 23:17] VITALS: BP 101/49
[2019-05-05 03:22] VITALS: BP 102/58
[2019-05-05 03:22] LABS: HEMATOCRIT 25.9 % (42-54); MEAN CORPUSCULAR HGB CONC 35.9 g/dL (32.0-36.0); PLATELET COUNT (AUTO) 97 K/uL (130-400); RED BLOOD CELL COUNT(AUTO) 2.91 MIL/uL (4.50-6.20); RED CELL DISTRIBUTION WIDTH 16.7 % (11.0-15.5)
[2019-05-05 03:36] LABS: ALBUMIN 2.5 g/dL (3.5-5.0); BILIRUBIN,TOTAL 2.6 mg/dL (0.2-1.0); CREATININE 1.6 mg/dL (0.5-1.5); POTASSIUM 4.6 mmol/L (3.5-5.1); TOTAL PROTEIN, SERUM 5.8 g/dL (6.0-8.3)
[2019-05-05 07:00] VITALS: BP 111/54
[2019-05-05] MEDS: MEROPENEM 1 GM VIAL IVP SCH ×2 (09:39→21:38)
[2019-05-05] MEDS: SODIUM BICARBONATE 650 MG TAB PO SCH ×2 (09:42→21:39)
[2019-05-05] MEDS: MIDODRINE HCL 5 MG TABLET PO SCH ×3 (09:42→21:39)
[2019-05-05] MEDS: FAMOTIDINE 20MG TAB 20 MG TAB PO SCH (09:42)
[2019-05-05 11:00] VITALS: BP 116/56
[2019-05-05 15:00] VITALS: BP 111/62
[2019-05-05 19:41] VITALS: BP 111/54
[2019-05-05 23:34] VITALS: BP 125/67
[2019-05-06 04:12] VITALS: BP 108/55
[2019-05-06 04:41] LABS: HEMATOCRIT 25.5 % (42-54); MEAN CORPUSCULAR HEMOGLOBIN 33.3 pg (27.0-33.0); MEAN CORPUSCULAR HGB CONC 36.9 g/dL (32.0-36.0); MEAN CORPUSCULAR VOLUME 90.4 fL (79-99); PLATELET COUNT (AUTO) 93 K/uL (130-400); RED BLOOD CELL COUNT(AUTO) 2.82 MIL/uL (4.50-6.20); RED CELL DISTRIBUTION WIDTH 17.3 % (11.0-15.5); WHITE BLOOD COUNT (AUTO) 5.5 K/uL (4.8-10.8)
[2019-05-06 04:55] LABS: CREATININE 1.3 mg/dL (0.5-1.5); POTASSIUM 4.6 mmol/L (3.5-5.1)
[2019-05-06 04:58] LABS: BAND NEUTROPHILS % (MANUAL) 4 % (0-2); EOSINOPHILS % (MANUAL) 4 % (1-6); LYMPHOCYTES % (MANUAL) 12 % (22-44); MAN.DIFF COMMENT-IMPRESSION MANUAL DIFFERENTIAL; MONOCYTES % (MANUAL) 16 % (2-9); PLATELET MORPHOLOGY COMMENT DECREASED; SEGMENTED NEUTROPHILS % 64 % (40-70)
[2019-05-06 07:00] VITALS: BP 125/69
[2019-05-06] MEDS: MIDODRINE HCL 5 MG TABLET PO SCH ×2 (07:47→13:19)
[2019-05-06] MEDS: FAMOTIDINE 20MG TAB 20 MG TAB PO SCH (07:47)
[2019-05-06] MEDS: SODIUM BICARBONATE 650 MG TAB PO SCH (07:47)
[2019-05-06] MEDS: MEROPENEM 1 GM VIAL IVP SCH (07:47)
--- NOTE | 2019-05-06 08:00 | NUR ---
ASSESSMENT PT IS AAOX3 DENIES CP DENIES SOB DENIES NV NO COMPLAINTS, RESTING IN BED. CALL LIGHT WITHIN REACH.
[2019-05-06 11:00] VITALS: BP 116/60
[2019-05-06 16:00] VITALS: BP 118/52
[2019-05-06] MEDS ORDERED: SODI650T PO (16:02)
[2019-05-06] MEDS ORDERED: FURO40TA7 PO (16:02)
[2019-05-06] MEDS ORDERED: Midodrine Hcl PO (16:02)
[2019-05-06] MEDS ORDERED: SPIR25TA PO (16:02)
[2019-05-06] MEDS ORDERED: DOXY100C2 PO (16:09)
--- NOTE | 2019-05-06 16:45 | NUR ---
MD ROUNDS DR INGRAM ROUNDED, OK TO DC PATIENT HOME
--- NOTE | 2019-05-06 17:55 | NUR ---
DISCHARGE INSTRUCTIONS GIVEN TO PATIENT AND FAMILY INSTRUCTED ON FOLLOW UP APPOINTMENTS, MEDS TO BE TAKEN, AND ALL DC INSTRUCTIONS. PATIENT AND FAMILY AGREE TO FOLLOW INSTRUCTIONS, ALL QUESTIONS ANSWERED, PIV REMOVED, CATH TIP INTACT, TELE PACK REMOVED. DOWN VIA WC WITH NURSE AIDE AND FAMILY TO PRIVATE VEHICLE.
== END 2019-05-06 17:58 | disposition home or self-care (01) | DRG 871 ==
LOC: EDH 16:45 → EDHIP 22:08 → 2BH 05-02 17:56 → 2AH 05-03 20:45
PROVIDERS: ADMIT Internal Medicine; ATTEND Internal Medicine
PROC: 0W9G3ZZ Drainage of Peritoneal Cavity, Percutaneous Approach (ICD-10-PCS; principal; 2019-05-02)
DX: A41.9 Sepsis, unspecified organism (principal); R65.21 Severe sepsis with septic shock; E43 Unspecified severe protein-calorie malnutrition; K65.2 Spontaneous bacterial peritonitis; G93.41 Metabolic encephalopathy; N39.0 Urinary tract infection, site not specified; N17.9 Acute kidney failure, unspecified; E87.2 Acidosis; E87.1 Hypo-osmolality and hyponatremia; K76.6 Portal hypertension; E87.5 Hyperkalemia; F14.10 Cocaine abuse, uncomplicated; N18.9 Chronic kidney disease, unspecified; I12.9 Hypertensive chronic kidney disease with stage 1 through stage 4 chronic kidney disease, or unspecified chronic kidney disease; Z68.37 Body mass index [BMI] 37.0-37.9, adult; D64.9 Anemia, unspecified; D69.59 Other secondary thrombocytopenia; E11.22 Type 2 diabetes mellitus with diabetic chronic kidney disease; E78.5 Hyperlipidemia, unspecified; E86.1 Hypovolemia; F17.200 Nicotine dependence, unspecified, uncomplicated; I25.10 Atherosclerotic heart disease of native coronary artery without angina pectoris; I95.89 Other hypotension; K70.31 Alcoholic cirrhosis of liver with ascites; K72.90 Hepatic failure, unspecified without coma; B95.8 Unspecified staphylococcus as the cause of diseases classified elsewhere; R09.02 Hypoxemia; Z95.5 Presence of coronary angioplasty implant and graft; Z83.3 Family history of diabetes mellitus; Z82.3 Family history of stroke; Z82.0 Family history of epilepsy and other diseases of the nervous system; Z83.6 Family history of other diseases of the respiratory system; Z82.49 Family history of ischemic heart disease and other diseases of the circulatory system
CPT/HCPCS: 36415; 36600; 71045; 74176; 76700; 80048; 80053; 80076; 80305; 81001; 82042; 82140; 82550; 82570; 82803; 83540; 83550; 83605; 83874; 83880; 84100; 84132; 84145; 84156; 84157; 84300; 84443; 84460; 84484; 85025; 85027; 85610; 85730; 87040; 87071; 87077; 87088; 87186; 87205; 89051; 93005; 93306; 99291; G0378; J0610; J0696; J1720; J1815; J1940; J2185; J2250; J2543; J2930; J3010; J3370; J3490; J7030; J7040; J7070; J7120; P9046